=== PATIENT | female | born 1975 | race African-American/Black ===

== ENCOUNTER 2021-10-20 21:32 | Emergency (ER) | payer BC ==
[~2021-10-20] VITALS: Ht 162.6 cm; Wt 82.0 kg
[2021-10-20 21:43] VITALS: BP 153/90
== END 2021-10-20 23:38 | disposition left against medical advice (07) ==
LOC: ER 21:32
DX: Z53.21 Procedure and treatment not carried out due to patient leaving prior to being seen by health care provider (principal)